=== PATIENT | female | born 2000 | race African-American/Black ===

== ENCOUNTER 2021-10-22 12:03 | Emergency (ER) | payer BC ==
[~2021-10-22] VITALS: Ht 162.6 cm; Wt 77.1 kg
[2021-10-22 12:03] VITALS: BP 127/80
--- NOTE | 2021-10-22 12:03 | NUR ---
ARRIVAL PATIENT ARRIVED TO ED5 AMBULATORY, C/O LEFT EYE SWELLING TODAY, PATIENT STATES SHE HAD AREA OF SWELLING THE LEFT EYE, ATTEMPTED TO OPEN THE AREA WITH DRAINAGE NOTED AND TODAY THE LEFT EYE WAS SWOLLEN, CAME TO THE ED FOR EVAL, DOCTOR GERALDINE TO THE ROOM TO SEE PATIENT.
--- NOTE | 2021-10-22 12:32 | ER.PDOC ---
General Chief Complaint: Eye Problems Stated Complaint: EYE LID SWELLING Time seen by MD: 12:26 Source: patient Exam Limitations: no limitations History of Present Illness Initial Comments Left eyelid swelling for the last 24 hours. Patient felt a lump and popped it out and the eyelid started swelling. No fever or chills. No history of trauma. Timing/Duration: gradual Associated Symptoms: pian, eyelid swelling Location: left eye Severity: mild Apparent Inury: No Where: home Allergies: Coded Allergies: No Known Allergies (Unverified , 10/22/21) Past Medical History Medical History: no pertinent history Surgical History: no surgical history Family History Significant Family History: no pertinent family hx Social History Smoking: other (vape) Alcohol Use: none Drug Use: none Constitutional: no symptoms reported Eyes: see HPI Respiratory: no symptoms reported Cardiovascular: no symptoms reported Gastrointestinal: no symptoms reported Musculoskeletal: no symptoms reported All Other Systems: Reviewed and Negative Physical Exam General Appearance: alert, no distress Visual Acuity: no globe trauma Eyelid: (L) edema, (L) erythema Conjunctiva/Sclera: nml inspection Corneas: nml inspection EOM's: intact, no nystagmus Pupils: PERRL, nml accommodation Head/ENT: nml inspection, pharynx nml Neck/Back: nml inspection, painless ROM Resp/CVS: no resp distress, lungs clear, heart sounds nml, reg. rate & rhythm Abdomen: non-tender, no organomegaly NEURO/PSYCH: oriented X3, mood/effect nml Comments No conjunctival exudate. Results/Orders Results/Orders Vital Signs Date Time Temp Pulse Resp B/P (MAP) Pulse Ox O2 Delivery O2 Flow Rate FiO2 10/22/21 12:03 98.8 91 16 100 10/22/21 12:03 98.0 91 16 127/80 (96) 100 Room Air 10/22/21 12:03 98.0 91 16 ER DEPART Departure Time of Disposition: 12:29 Disposition: 01 HOME / SELF CARE / HOMELESS Impression: Primary Impression: Periorbital cellulitis of left eye Condition: Stable Referrals: PCP,UNKNOWN (PCP) PRIMARY CARE PROVIDER Additional Instructions: Augmentin F/U with your Eye in 2-3 days Return to ED if worsening or concerns Duration or Time Spent with Pa: 10 min IVONNE CHANDLER MD Oct 22, 2021 12:32
[2021-10-22 12:41] VITALS: BP 132/78
== END 2021-10-22 12:41 | disposition home or self-care (01) ==
LOC: ER 12:03
DX: L03.213 Periorbital cellulitis (principal)
CPT/HCPCS: 99281; 99283